=== PATIENT | female | born 1990 | race Caucasian/White ===

== ENCOUNTER 2018-03-18 17:02 | Emergency (ER) | payer OTHER ==
[~2018-03-18] VITALS: Ht 180.3 cm; Wt 117.9 kg
[2018-03-18 18:16] LABS: BASOPHILS ABSOLUTE AUTO 0.03 K/mm3 (0.00-0.23); BASOPHILS PERCENT AUTO 0 % (0-2); EOSINOPHILS ABSOLUTE AUTO 0.22 K/mm3 (0.00-0.68); EOSINOPHILS PERCENT AUTO 3 % (0-6); Hematocrit 42.9 % (33.0-51.0); Hemoglobin 14.1 g/dL (11.5-16.0); IMMATURE GRAN ABSOLUTE AUTO 0.03 K/mm3 (0.00-0.10); IMMATURE GRAN PERCENT AUTO 0 % (0-1); LYMPHOCYTES ABSOLUTE AUTO 2.43 K/mm3 (0.84-5.20); LYMPHOCYTES PERCENT AUTO 30 % (21-46); MONOCYTES ABSOLUTE AUTO 0.49 K/mm3 (0.16-1.47); MONOCYTES PERCENT AUTO 6 % (4-13); Mean Corpuscular HGB 28.1 pg (26.0-34.0); Mean Corpuscular HGB Conc 32.9 g/dL (31.5-36.5); Mean Corpuscular Volume 86 fL (80-100); Mean Platelet Volume 11.6 fL (9.1-12.4); NEUTROPHILS PERCENT AUTO 61 % (41-73); Platelet Count 211 K/mm3 (150-400); RDW Coefficient Variation 13.3 % (11.7-14.2); RDW Standard Deviation 41.2 fL (35.1-46.3); Red Blood Cell Count 5.02 M/mm3 (3.80-5.20)
[2018-03-18 19:08] LABS: Troponin I <0.015 ng/mL (0.000-0.040)
[2018-03-18 19:09] LABS: Alanine Aminotransfer (ALT/SGP 20 U/L (12-78); Albumin, Blood 3.4 g/dL (3.4-5.0); Albumin/Globulin Ratio 0.9 (0.8-1.8); Alk Phos 67 U/L (50-136); Anion Gap 7 mmol/L (6-16); Aspartate Aminotrans (AST/SGOT 12 U/L (12-37); Bilirubin, Total 0.4 mg/dL (0.1-1.0); Blood Urea Nitrogen 10 mg/dL (8-24); Bun/Creatinine Ratio 14.9 (12.0-20.0); CO2, Blood 24 mmol/L (21-32); Chloride, Blood 109 mmol/L (98-108); Creatinine, Blood 0.67 mg/dL (0.40-1.00); Globulin, Blood 3.7 g/dL (2.2-4.0); Glomerular Filtration Rate >60 (60-); Glucose, Blood 91 mg/dL (70-99); Potassium, Blood 3.6 mmol/L (3.5-5.5); Sodium, Blood 140 mmol/L (136-145); Total Protein, Blood 7.1 g/dL (6.4-8.2)
== END 2018-03-18 22:10 | disposition home or self-care (01) ==
LOC: ER 17:02
PROVIDERS: Internal Medicine
DX: R07.9 Chest pain, unspecified (principal); F17.200 Nicotine dependence, unspecified, uncomplicated; Z91.030 Bee allergy status
CPT/HCPCS: 36415; 71046; 80053; 84484; 85025; 85379; 93005; 93010; 96374; 99285-25; J1885

== ENCOUNTER 2022-03-09 08:43 | Day surgery (SDC) | payer OTHER ==
[~2022-03-09] VITALS: Ht 180.3 cm; Wt 104.3 kg
[2022-03-09] MEDS ORDERED: Celexa20 MG PO (09:22)
[2022-03-09] MEDS ORDERED: CYCL10 PO (09:22)
[2022-03-09] MEDS ORDERED: PROP10 (09:23)
[2022-03-09] MEDS ORDERED: DOCU100 PO (16:22)
[2022-03-09] MEDS ORDERED: Acetaminophen325 M1 PO (16:24)
[2022-03-09] MEDS ORDERED: IBUP800 PO (16:25)
--- NOTE | 2022-03-09 16:35 | NUR ---
PT AMBULTING INDEPENDENTLY IN ROOM AND HALLS, JULIO CESAR PO FOOD AND FLIDS. SCANT BLOODY VAGINAL DRAINAGE ON MAZIN PAD. PT HAS CHANGED MAZIN PAD X1 SINCE ADMISSION. PT REPORTS PAIN IS ADEQUATELY CONTROLLED PT REQUESTS DISCHARGE HOME WITH HER MOTHER. IV DC INTACT. DISCHARGE INSTRUCTIONS REVIEWED WITH PATIENT AND PATIENT VERBALIZES UNDERSTANDING. DICHARGED TO HOME WITH MOTHER AT 1630
== END 2022-03-09 16:30 | disposition home or self-care (01) ==
LOC: ORD 08:43 → ORSCMMR 08:43 → ORD 10:15 → SURS 13:55 → ORD 16:30
PROVIDERS: Obstetrics & Gynecology
PROC: 0UT74ZZ Resection of Bilateral Fallopian Tubes, Percutaneous Endoscopic Approach (ICD-10-PCS; principal; 2022-03-09 10:15)
PROC: 0UT94ZZ Resection of Uterus, Percutaneous Endoscopic Approach (ICD-10-PCS; 2022-03-09 10:15)
PROC: 8E0W4CZ Robotic Assisted Procedure of Trunk Region, Percutaneous Endoscopic Approach (ICD-10-PCS; 2022-03-09 10:15)
DX: N92.4 Excessive bleeding in the premenopausal period (principal); N83.8 Other noninflammatory disorders of ovary, fallopian tube and broad ligament; N85.2 Hypertrophy of uterus; N85.8 Other specified noninflammatory disorders of uterus; E66.9 Obesity, unspecified; Z68.31 Body mass index [BMI] 31.0-31.9, adult; F41.9 Anxiety disorder, unspecified; Z79.899 Other long term (current) drug therapy
CPT/HCPCS: 58571; S2900; 86850; 86900; 86901; 88307; A9270; J0690; J1100; J1170; J1885; J2250; J2405; J2704; J2795; J3010; J7120

== ENCOUNTER → 2023-03-27 | Outpatient (CLI) | payer OTHER ==
[~2023-03-27] MED LIST: Acetaminophen325 M1 PO; CYCL10 PO; Celexa20 MG PO; DOCU100 PO; IBUP800 PO; PROP10
[2023-03-29 19:09] LABS: CHLAMYDIA BY NAA Negative (Negative); GONOCOCCUS BY NAA Negative (Negative); TRICH VAG BY NAA Negative (Negative)
== END ==
LOC: LAB SHORT 10:33 → LAB 10:33
PROVIDERS: Physician Assistant Medical
DX: Z72.51 High risk heterosexual behavior (principal)
CPT/HCPCS: 87070; 87205; 87491; 87591; 87661

== ENCOUNTER 2024-01-20 17:03 | Emergency (ER) | payer OTHER ==
[~2024-01-20] VITALS: Ht 180.3 cm; Wt 98.0 kg
[2024-01-20 17:30] VITALS: BP 130/90
[2024-01-20] MEDS ORDERED: Hydrocortisone Acetate 25 MG Supp PR ONE (17:40)
[2024-01-20] MEDS ORDERED: Sennosides 8.6 MG Tab PO ONE (17:45)
== END 2024-01-20 18:15 | disposition home or self-care (01) ==
LOC: ER 17:03
DX: K64.9 Unspecified hemorrhoids (principal); F17.210 Nicotine dependence, cigarettes, uncomplicated
CPT/HCPCS: 99282; A9270